=== PATIENT | female | born 1990 | race Caucasian/White ===

== ENCOUNTER 2018-12-18 23:22 | Emergency (ER) | payer OTHER ==
[~2018-12-18] VITALS: Ht 177.8 cm; Wt 115.2 kg
[2018-12-18 23:24] VITALS: BP 141/91; Ht 177.8 cm; Wt 115.2 kg
== END 2018-12-19 00:24 | disposition home or self-care (01) ==
LOC: ED 23:22
DX: S60.221A Contusion of right hand, initial encounter (principal); S60.042A Contusion of left ring finger without damage to nail, initial encounter; F17.210 Nicotine dependence, cigarettes, uncomplicated; V49.88XA Car occupant (driver) (passenger) injured in other specified transport accidents, initial encounter; Y93.I9 Activity, other involving external motion; Y92.413 State road as the place of occurrence of the external cause; Y99.8 Other external cause status